=== PATIENT | female | born 1970 | race Hispanic/Latino ===

== ENCOUNTER 2018-10-25 19:33 | Emergency (ER) | payer SELFPAY ==
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
== END 2018-10-25 21:34 | disposition home or self-care (01) ==
LOC: ER 19:33
DX: M25.531 Pain in right wrist (principal); V49.40XA Driver injured in collision with unspecified motor vehicles in traffic accident, initial encounter
CPT/HCPCS: 99284